=== PATIENT | male | born 1960 | race Caucasian/White ===

== ENCOUNTER → 2025-02-20 12:25 | Outpatient (BNVA) | payer MEDICARE, OTHER, SELFPAY | PROVIDERS: PCP Nurse Practitioner Family; Visit Provider Internal Medicine Cardiovascular Disease | DX: R00.2 Palpitations (principal); I10 Essential (primary) hypertension; R07.9 Chest pain, unspecified; F17.210 Nicotine dependence, cigarettes, uncomplicated; I69.328 Other speech and language deficits following cerebral infarction | CPT/HCPCS: 99204 ==

== ENCOUNTER 2025-03-05 06:55 | Outpatient (CLI) | payer MEDICARE, OTHER, SELFPAY ==
--- NOTE | 2025-03-05 | ECG_ITS ---
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 Interpretive Statements Procedure: At the baseline, the blood pressure was 122/76 mmHg with a heart rate of 54 bpm. The electrocardiogram showed normal sinus rhythm, normal axis with normal ST and T's. The Lexiscan was infused over a period of 20 seconds. A total of 0.4 mg of Lexiscan was infused. The stress phase was continued for a total of 5 minutes. Heart rate was at the end of stress phase was 68 bpm and a blood pressure of 119/71 mmHg. The EKG at the peak infusion revealed normal sinus rhythm with no significant ST-T wave changes. Sestamibi was injected 20 seconds after the Lexiscan infusion. Blood pressure at the end of recovery phase was 120/65 mmHg with a heart rate of 71 bpm. Conclusion: 1. Normal EKG response to Lexiscan infusion 2. No Lexiscan induced chest pain or cardiac arrhythmia. 3. Normal blood pressure and heart rate response. 4. Nuclear myocardial perfusion scan pending; see separate report. Electronically Signed On 03-10-2025 13:16:59 CDT by Pritesh Stephen M.D. [email or web address]
[2025-03-05 07:05] VITALS: BMI 22.3
--- NOTE | 2025-03-05 07:09 | NMCV_ITS ---
NM trung perf SPECT r/s* [id number] Gualberto Boston Age: 65 Gender: M : 1960 Exam Date: 03/05/2025 08:24 Ordering Phys: Jarocho Arguello MD ([email or web address]) Technologist: MAHSA Robles Exam Location: [facility] Indications: CP CP STRESS TEST Please see separate stress test report in [facility] for full findings IMAGE PROTOCOL Rest/Stress 1 Lexiscan Day Radiopharmaceutical Dose (mCi) Administration Site Administered by Rest: Tc-99m 10.6 IV Meagan Carvajal, [employer] Sestamibi Stress:Tc-99m 32.8 IV Meagan Carvajal, [employer] Sestamibi Rest: 05-Mar-2025 60 Discovery 630 Stress: 05-Mar-2025 30 Discovery 630 0.4mg Lexiscan. Images obtained in supine and prone position. SPECT RESULTS Technical Quality: Good Raw Data Analysis: Normal Image Corrections: No attenuation or motion correction applied Summed Stress Score: 0 Summed Rest Score: 2 Summed Difference Score: 0 PERFUSION FINDINGS Normal tracer uptake in all myocardial segments FUNCTIONAL RESULTS (calculated via Gated SPECT) Stress Image LV EF (%): 55 Stress EDV (mL):127 TID: 1.07 Stress ESV (mL):57 FUNCTIONAL FINDINGS: Normal left ventricular systolic function, EF 55% IMPRESSIONS 1. Normal myocardial perfusion stress test with no evidence of infarction or ischemia 2. Normal left ventricular systolic function, EF 55% Pritesh Stephen MD, FACC (Electronically Signed) Final Date: 05 March 2025 12:11 S
[2025-03-05 09:22] VITALS: BP 120/76; PULSE 62
== END 2025-03-05 06:56 | disposition home or self-care (01) ==
LOC: CDL 06:56
PROVIDERS: PCP Nurse Practitioner Family; Visit Provider Internal Medicine Cardiovascular Disease
DX: R07.9 Chest pain, unspecified (principal)
CPT/HCPCS: 36415; 78452; 93017; 96374; A9500; J2785